=== PATIENT | male | born 1970 | race Caucasian/White ===

== ENCOUNTER 2021-03-22 19:30 | Emergency (ER) | payer MEDICAID, SELFPAY ==
[2021-03-22 19:40] VITALS: BP 127/77; PULSE 85; RESP 20; TEMP 36.8; O2SAT 97
--- NOTE | 2021-03-22 19:44 | ED.EYEPROB ---
HPI - Eye Problem General Chief complaint: Eye Problems Stated complaint: Eye Problem Source: patient and RN notes reviewed Mode of arrival: ambulatory Limitations: no limitations History of Present Illness chief complaint: eye pain Related Data Allergies Allergy/AdvReac Type Severity Reaction Status Date / Time No Known Allergies Allergy Unknown Unverified 10/02/13 11:04 Review of Systems Review of Systems: CONSTITUTIONAL: Denies body aches, fever, chills, or sweats. EYES: Denies visual changes,+ redness, or discharge. ENT: Denies rhinorrhea, congestion, sore throat, or otalgia. CARDIOVASCULAR: Denies chest pain, palpitations, or edema. RESPIRATORY: Denies cough or dyspnea. GASTROINTESTINAL: Denies abdominal pain, nausea, vomiting, or diarrhea. GENITOURINARY: Denies dysuria or hematuria. SKIN: Denies rash, itching, or wounds. MUSCULOSKELETAL: Denies back pain, joint pain, or myalgia. NEUROLOGIC: Denies headache, numbness, tingling, or weakness. PSYCH: Denies depression or anxiety. All systems reviewed & are unremarkable except as noted in HPI and below Exam Narrative: GENERAL: Well-appearing, well-nourished, and in no acute distress. HEAD: Normocephalic, atraumatic. EYES: EOMI. Right eye erythemic with moderate tearing noted. Corneal abrasion noted at 3pm. ENT: Mucous membranes pink and moist. Nares clear. No rhinorrhea. TMs normal bilaterally. Throat normal. Uvula midline. NECK: Normal AROM. Supple. No lymphadenopathy. CHEST: No respiratory distress. Clear to auscultation. HEART: Regular rate and rhythm. No murmur appreciated. Normal peripheral pulses. ABDOMEN: Soft, nontender, nondistended, normal active bowel sounds. MUSCULOSKELETAL: No bony tenderness. EXTREMITIES: Normal range of motion. No edema. SKIN: Warm, dry, no rash. Capillary refill normal. Normal skin turgor. NEURO: No focal deficits. Alert and oriented x3. Gait steady. PSYCH: Normal affect. No signs of depression or anxiety. Course Vital Signs Vital signs: Vital Signs Temperature 36.8 C 03/22/21 19:40 Pulse Rate 85 03/22/21 19:40 Respiratory Rate 20 03/22/21 19:40 Blood Pressure 127/77 03/22/21 19:40 Pulse Oximetry 97 03/22/21 19:40 Temperature 36.8 C 03/22/21 19:40 Pulse Rate 85 03/22/21 19:40 Respiratory Rate 20 03/22/21 19:40 Blood Pressure 127/77 03/22/21 19:40 Pulse Oximetry 97 03/22/21 19:40 Procedures Other Procedure Procedure 1: Other Procedure: right eye was anesthetized with 1 drop of tetracaine and anesthesia was achieved. The eye was flushed with eye wash. Lid was inverted and examined. Moistened Qtip was used to sweep underneath the upper eyelid with no foreign bodies resulting. Cornea was dyed with fluorescein and one abrasions noted at 3pm/. Pt tolerated procedure well. Critical Care Time Critical Care Time Critical Care Time: No Discharge Plan Discharge Clinical Impression: Corneal abrasion Patient Disposition: Home, Self-Care Condition: Stable Instructions: Antibiotic Form, Corneal Abrasion (ED) Additional Instructions: Do not rub your eye. Take antibiotic eye drops as prescribed. Follow-up immediately in the ER with an county home demonstration agent for any severe eye pain, vision change, or any severe symptoms. ibuprofen or Motrin 800 mg three times daily for pain. Patient Language: Slovenian Prescriptions: New ciprofloxacin HCl 0.3 % drops 2 drp RIGHT EYE QID Qty: 5 RF: 0 Follow-up/Referrals: PHYSICIAN,STATISTICAL METHODS TEACHER [Primary Care Provider] - Time of Disposition: 20:02
== END 2021-03-22 20:07 | disposition home or self-care (01) ==
PROVIDERS: Emergency Provider Nurse Practitioner Family
DX: S05.01XA Injury of conjunctiva and corneal abrasion without foreign body, right eye, initial encounter (principal); X58.XXXA Exposure to other specified factors, initial encounter; Y93.H2 Activity, gardening and landscaping
CPT/HCPCS: 99203; A9270; G0463

== ENCOUNTER 2021-08-08 10:57 | Outpatient (CLI) | payer BC, SELFPAY ==
--- NOTE | ~2021-08-08 | XR_ITS ---
EXAMINATION: XR shoulder LT min 2V INDICATION: Chronic left shoulder pain TECHNIQUE: Four views of the left shoulder are submitted. COMPARISON: None FINDINGS: Normal alignment. No shoulder fracture. A healed left fifth rib fracture is noted. 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 Soft tissues are unremarkable. IMPRESSION: 1. No acute osseous abnormality. Reviewed, dictated and finalized at location B.
[2021-08-08 18:58] LABS: Hematocrit 48.1 % (42.0-52.0); Hemoglobin 15.6 g/dL (14.0-18.0); Mean Corpuscular HGB Conc 32.4 g/dl (32-36); Mean Corpuscular Hemoglobin 30.4 pg (26-34); Mean Corpuscular Volume 93.8 fl (80-100); Mean Platelet Volume 8.9 fl (7.4-10.4); Platelet Count Result 306 k/mm3 (150-375); Red Blood Count 5.13 M/mm3 (4.6-6.20); Red Cell Distribution Width 13.5 % (11.5-14.5); White Blood Count 6.8 K/mm3 (4.5-10.0)
[2021-08-08 19:10] LABS: Alanine Aminotransferase 33 U/L (4-50); Albumin Level 4.1 g/dL (3.5-5.1); Alkaline Phosphatase 78 U/L (38-126); Anion Gap 6 mmol/L (8-16); Aspartate Amino Transferase 30 U/L (17-59); Bilirubin,Total 0.1 mg/dL (0.2-1.3); Blood Urea Nitrogen 19 mg/dL (9-20); Calcium 9.2 mg/dL (8.4-10.2); Carbon Dioxide 26 mmol/L (22-30); Chloride 107 mmol/L (98-107); Cholesterol 172 mg/dL (0-200); Estimated Glomerular Filt Rate > 60; Glucose 99 mg/dL (65-110); HDL Direct 46 mg/dL; Lipase 88 U/L (23-300); Potassium 4.3 mmol/L (3.4-5.0); Sodium 139 mmol/L (137-145); Triglycerides 104 mg/dL (<150)
[2021-08-08 19:11] LABS: Hemoglobin A1C 5.2 % (<5.7)
[2021-08-08 19:22] LABS: LDL Cholesterol Direct 105 mg/dL
[2021-08-08 19:44] LABS: Prostate Specific Antigen 1.6 ng/mL (< OR = 4.0)
== END 2021-08-08 10:58 | disposition home or self-care (01) ==
PROVIDERS: PCP Family Medicine; Visit Provider Family Medicine
DX: K21.9 Gastro-esophageal reflux disease without esophagitis (principal); Z87.19 Personal history of other diseases of the digestive system; M25.512 Pain in left shoulder; G89.29 Other chronic pain
CPT/HCPCS: 36415; 73030; 80053; 80061; 83036; 83690; 84153; 85027; G0103

== ENCOUNTER 2021-08-28 10:06 | Outpatient (CLI) | payer BC, SELFPAY ==
--- NOTE | ~2021-08-28 | CT_ITS ---
EXAMINATION: CT lung screening EXAM DATE: 08/28/2021 10:41 INDICATION: Z87.891 - Personal history of nicotine dependence. TECHNIQUE: Spiral low dose CT of the chest without contrast. Axial, coronal and sagittal images were reviewed. The dose-length product (DLP) for this examination was 176.37 mGy-cm. The exposure was t ailored according to patient size (auto mA exposure control), and iterative reconstruction (ASIR) was used as additional dose reduction technique. There is no prior study for comparison. FINDINGS: There are 2 pleural-based right middle lobe nodules along the minor fissure measuring abou t 3 mm in size most likely postinfectious. There is lingular calcified granuloma. There is 3 mm left apical nodule suspected to have punctate calcification consistent with granuloma. There is mild emphy sema and hyperinflation. Tracheobronchial tree is patent. There is no mediastinal, hilar or axilla ry lymphadenopathy. There are no pleural or pericardial effusions. There is no pneumothorax. He art normal in size. No evidence of coronary arterial calcification. There is small sliding gastroes ophageal hiatal hernia. There is thoracic spondylosis without osteoblastic or osteolytic lesions lily ntified. IMPRESSION: Lung-RADS category 2, benign appearance or behavior (<1% chance of malignancy); recommend continued LDCT screening in 1 year. Reviewed, dictated and finalized at location B.
== END 2021-08-28 10:07 | disposition home or self-care (01) ==
LOC: ANHIMG 10:09
PROVIDERS: PCP Family Medicine; Visit Provider Family Medicine
DX: Z87.891 Personal history of nicotine dependence (principal)
CPT/HCPCS: 71271

== ENCOUNTER 2024-04-21 16:47 | Emergency (ER) | payer BC, SELFPAY ==
[2024-04-21 16:56] VITALS: BP 119/86; PULSE 87; RESP 20; TEMP 36.9; O2SAT 97
--- NOTE | 2024-04-21 17:37 | ED_ITS ---
HPI - Dental/Oral General Chief complaint: Dental/Oral Stated complaint: Chest Pain/Mouth Sore/Toothache Time Seen by Provider: 04/21/24 17:37 Source: patient Mode of arrival: ambulatory History of Present Illness HPI Narrative: 53 y/o male presented for c/o bilateral lower posterior dental pain. Says the right is worse than the left. Pt reports bad and broken teeth, history of dental pain. Pain has been worsening for weeks. Pt took steroid dose pack someone gave him without relief. Also taking tylenol and ibuprofen. MD Complaint: tooth pain Related Data Allergies Allergy/AdvReac Type Severity Reaction Status Date / Time No Known Allergies Allergy Unknown Unverified 04/21/24 17:00 Review of Systems Review of Systems: CONSTITUTIONAL: Denies body aches, fever, chills ENT: Denies rhinorrhea, congestion, sore throat, or otalgia. Reports dental pain CARDIOVASCULAR: Denies chest pain, palpitations RESPIRATORY: Denies cough or dyspnea. SKIN: Denies rash, itching, or wounds. MUSCULOSKELETAL: Denies myalgia. NEUROLOGIC: Denies headache, numbness, tingling, or weakness. [facility] Past Medical History Medical History Acute biliary pancreatitis Family History Family History Father Cerebrovascular accident Mother Bone cancer Comments At time of signature, I have reviewed and agree with nursing past medical, surgical, social and family history unless otherwise noted. Please see nursing chart for further information. There is no relevant family history pertinent to the presenting complaint Exam Narrative: GENERAL: Appears in pain; no acute distress. HEAD: Normocephalic, atraumatic. EYES: EOMI. No redness or drainage. Conjunctivae normal. ENT: Dental pain location of #31 and #19, broken teeth. Swelling and erythema noted around #31, tender. Mild swelling to #19. Mucous membranes pink and moist. TMs normal bilaterally. Throat normal. no dysphagia, odynophagia, dysphonia, or dyspnea. No uvular deviation or soft palate edema. NECK: Normal AROM. No lymphadenopathy. no induration below mandible, no neck pain. CHEST: No respiratory distress. Clear to auscultation. HEART: Regular rate and rhythm. No murmur appreciated. SKIN: Warm, dry, Normal skin turgor. NEURO: No focal deficits. Alert and oriented x3. Gait steady. Course Course Emergency Course: Patient is aware of diagnosis, understands and agrees to treatment plan. Anticipatory guidance given. Patient agrees to follow-up as directed and is aware of reasons to seek care at the emergency department. Portions of this record may have been created with voice recognition software Level of Care: Express Care Visit Vital Signs Vital signs: Vital Signs Temperature 98.5 F 04/21/24 16:56 Pulse Rate 87 04/21/24 16:56 Respiratory Rate 20 04/21/24 16:56 Blood Pressure 119/86 04/21/24 16:56 Pulse Oximetry 97 04/21/24 16:56 Oxygen Delivery Room Air 04/21/24 16:56 Temperature 98.5 F 04/21/24 16:56 Pulse Rate 87 04/21/24 16:56 Respiratory Rate 20 04/21/24 16:56 Blood Pressure 119/86 04/21/24 16:56 Pulse Oximetry 97 04/21/24 16:56 Oxygen Delivery Room Air 04/21/24 16:56 MDM - Dental/Oral MDM Narrative Medical decision making narrative: Patients pain and complaint coupled with physical findings are consistent with dentalgia. There are no focal signs of space occupying lesions that are compromising to the airway; Patient is non-toxic appearing. The floor of the mouth is soft with no signs of Ghanshyam's Angina; Patient is without trismus or drooling and able to swallow secretions. Patient is felt appropriate for discharge home with dental follow up. Differential Diagnosis Differential diagnosis: Likely gingival abscess, dental caries, toothache, dental abscess, fracture of tooth and aphthous ulcer Discharge Plan Discharge Clinical Impression: Toothache Patient Disposition: Home, Self-Care Condition: Stable Instructions: Antibiotic Form, Dental Abscess (ED) Additional Instructions: Take antibiotic as directed May apply heat or ice to the face Gentle brushing and flossing. Rinse mouth with warm salt water at least 2 times a day. Alternate Tylenol and ibuprofen as needed for pain Follow-up with the dentist as soon as possible--see the list provided go to the ER for worsening symptoms or concerns Prescriptions: New ibuprofen 800 mg tablet 800 mg PO TID PRN (Reason: pain) Qty: 15 0RF lidocaine HCl [Lidocaine Viscous] 2 % solution 1 applic mucous membrane TID PRN (Reason: pain) Qty: 100 0RF Rx Instructions: apply with cotton swab to site of pain amoxicillin-pot clavulanate 875-125 mg tablet 1 tablet PO Q12H 7 Days Qty: 14 0RF Follow-up/Referrals: PHYSICIAN,RAILWAY SWITCH OPERATOR [Primary Care Provider] - Stand Alone Forms: Work/School Release IP Time of Disposition: 17:45
== END 2024-04-21 17:45 | disposition home or self-care (01) ==
PROVIDERS: Emergency Provider Nurse Practitioner Family
DX: K08.89 Other specified disorders of teeth and supporting structures (principal)
CPT/HCPCS: 99213; G0463

== ENCOUNTER 2024-11-25 11:58 | Emergency (ER) | payer BC, SELFPAY ==
--- OUTSIDE RECORDS SUMMARY | 2024-11-25 12:01 | XMS_ITS | Data Portability ---
Author Organization [facility] KAITLINAna Cadet Address [address] [place] [address] Care Team Providers Care Psych Sales Specialist Name Role Phone JACINTA HERRERA Primary Care Provider Unavailabl e Assessment No assessment recorded. Plan of Treatment Reminders Order Date Submit Date Provider Last Modified By Organization Details Last Modified Time Details Appointments None recorded. Lab CT + NG DNA, PCR, unspecifie d specimen 2015 [facility]16 [facility], [address] [place] [address], [address], [place], [address], 6 09:16:25 hsv (1+2) igg, serum 2015 016 [facility], [address] [place] [address], [address], [place], [address], 6 09:16:24 hepatitis panel (A+B+C), acute, serum 2015 016 [facility], [address] [place] [address], [address], [place], [address], 6 09:16:24 unlisted lab - HIV screen 4TH generation wrfx 2015 016 [facility], [address] [place] [address], [address], [place], [address], 6 14:28:51 RPR (rapid plasma reagin), serum 2015 016 DEANNA HUTCHINSON, [address], [address], [place], [address], 6 09:16:26 CBC 2015 016 DEANNA HUTCHINSON, [address], [address], [place], [address], 6 09:16:22 CMP, serum or plasma 2015 016 DEANNA HUTCHINSON, [address], [address], [place], [address], 6 09:16:23 lipid panel, serum 2015 016 DEANNA HUTCHINSON, [address], [address], [place], [address], 6 09:16:23 PSA, serum or plasma 2015 016 DEANNA HUTCHINSON, [address], [address], [place], [address], 6 09:16:25 Referral None recorded. Procedures None recorded. Surgeries None recorded. Imaging None recorded. Medication Orders omeprazole 20 mg capsule,de layed release 2015 016 [id number], [address], [place], [id number], 6 14:28:57 fluticason e propionate 50 mcg/actuat ion nasal spray,susp ension 2015 016 [facility] #[id number], [address], [place], [id number], 6 14:28:58 Sudafed 12 Hour 120 mg tablet,ext ended release 2015 016 [facility] #[id number], [address], [place], [place], [id number], 18:25:17 Patient TargetsNo targets recorded. Patient Instructions Encounter Date Encounter Id Patient Instructions Last Modified By Organization Details Last Modified Time 05/09/2016 [id number] gastroesophageal reflux disease (GERD): care instructions [email or web address] Not available 05/09/2016 14:28:51 Reason for Referral None Reported. Results Created Date Observation Date Name Description Value Unit Range Abnormal Flag Note LastModifiedBy Organization Detail LastModifiedTime 05/09/20 16 05/10/2016 CBC WBC 6.8 x10e3 /uL 3.4-10 .8 Not Available [facility] ([facility]) [address] [facility], [place], [address], 05/11/2016 09:16:22 05/09/20 16 05/10/2016 CBC RBC 4.68 x10e6 /uL 4.14-5 .80 Not Available [facility] ([facility]) [address] [place], [address], 05/11/2016 09:16:22 05/09/20 16 05/10/2016 CBC hemoglobin 14.6 g/dL 12.6-1 7.7 Not Available [facility] ([facility]) [address] [place], [address], 05/11/2016 09:16:22 05/09/20 16 05/10/2016 CBC hematocrit 42.7 % 37.5-5 1.0 Not Available [facility] ([facility]) [address] [place], [address], 05/11/2016 09:16:22 05/09/20 16 05/10/2016 CBC MCV 91 fL 79-97 Not Available [facility] ([facility]) [address] [facility], [place], [address], 05/11/2016 09:16:22 05/09/20 16 05/10/2016 CBC MCH 31.2 pg 26.6-3 3.0 Not Available [facility] ([facility]) [address] [facility] [place], [address], 05/11/2016 09:16:22 05/09/20 16 05/10/2016 CBC MCHC 34.2 g/dL 31.5-3 5.7 Not Available [facility] ([facility]) [address] [place], [address], 05/11/2016 09:16:22 05/09/20 16 05/10/2016 CBC RDW 13.9 % 12.3-1 5.4 Not Available [facility] ([facility]) [address] [facility] [place], [address], 05/11/2016 09:16:22 05/09/20 16 05/10/2016 CBC platelets 368 x10e3 /uL 150-37 9 Not Available [facility] ([facility]) [address] [place], [address], 05/11/2016 09:16:22 05/09/20 16 05/10/2016 CBC neutrophils 46 % Not Avai lable [facility] ([facility]) [address] [place], [address], 05/11/2016 09:16:22 05/09/20 16 05/10/2016 CBC lymphs 40 % Not Available [facility] ([facility]) [address] [place], [address], 05/11/2016 09:16:22 05/09/20 16 05/10/2016 CBC monocytes 10 % Not Availa ble [facility] ([facility]) [address] [place], [address], 05/11/2016 09:16:22 05/09/20 16 05/10/2016 CBC eos 4 % Not Available [facility] ([facility]) [address] [place], [address], 05/11/2016 09:16:22 05/09/20 16 05/10/2016 CBC basos 0 % Not Available [facility] ([facility]) [address] [facility] [place], [address], 05/11/2016 09:16:22 05/09/20 16 05/10/2016 CBC immature cells DEBT MANAGEMENT COUNSELOR Not Available [facility] ([facility]) [address] [place], [address], 05/11/2016 09:16:22 05/09/20 16 05/10/2016 CBC neutrophils (absolute) 3.1 x10e3 /uL 1.4-7. 0 Not Available [facility] ([facility]) [address] [place], [address], 05/11/2016 09:16:22 05/09/20 16 05/10/2016 CBC lymphs (absolute) 2.7 x10e3 /uL 0.7-3. 1 Not Available [facility] ([facility]) [address] [facility] [place], [address], 05/11/2016 09:16:22 05/09/20 16 05/10/2016 CBC monocytes(ab solute) 0.7 x10e3 /uL 0.1-0. 9 Not Available [facility] ([facility]) [address] [place], [address], 05/11/2016 09:16:22 05/09/20 16 05/10/2016 CBC eos (absolute) 0.3 x10e3 /uL 0.0-0. 4 Not Available [facility] ([facility]) [address] [place], [address], 05/11/2016 09:16:22 05/09/20 16 05/10/2016 CBC baso (absolute) 0.0 x10e3 /uL 0.0-0. 2 Not Available [facility] ([facility]) [address] [place], [address], 05/11/2016 09:16:22 05/09/20 16 05/10/2016 CBC immature granulocytes 0 % Not Available [facility] ([facility]) [address] [place], [address], 05/11/2016 09:16:22 05/09/20 16 05/10/2016 CBC immature grans (abs) 0.0 x10e3 /uL 0.0-0. 1 Not Available [facility] ([facility]) [address] [place], [address], 05/11/2016 09:16:22 05/09/20 16 05/10/2016 CBC NRBC DEBT MANAGEMENT COUNSELOR Not Available [facility] ([facility]) [address] [place], [address], 05/11/2016 09:16:22 05/09/20 16 05/10/2016 CBC hematology comments: DEBT MANAGEMENT COUNSELOR Not Available [facility] ([facility]) [address] [place], [address], 05/11/2016 09:16:22 05/09/20 16 05/10/2016 CMP, serum or plasm a glucose, serum 78 mg/dL 65-99 Not Available [facility] ([facility]) [address] [place], [address], 05/11/2016 09:16:23 05/09/20 16 05/10/2016 CMP, serum or plasm a BUN 15 mg/dL 6-24 Not Available [facility] ([facility]) [address] [place], [address], 05/11/2016 09:16:23 05/09/20 16 05/10/2016 CMP, serum or plasm a creatinine, serum 0.88 mg/dL 0.76-1 .27 Not Available [facility] ([facility]) [address] [place], [address], 05/11/2016 09:16:23 05/09/20 16 05/10/2016 CMP, serum or plasm a eGFR if nonafricn AM 104 mL/mi n/1.7 3 >59 Not Available [facility] ([facility]) [address] [facility], [place], [address], 05/11/2016 09:16:23 05/09/20 16 05/10/2016 CMP, serum or plasm a eGFR if africn AM 121 mL/mi n/1.7 3 >59 Not Available [facility] ([facility]) [address] [facility], [place], [address], 05/11/2016 09:16:23 05/09/20 16 05/10/2016 CMP, serum or plasm a BUN/creatini ne ratio 17 9-20 Not Available [facility] ([facility]) [address] [place] [address] [place], [address], 05/11/2016 09:16:23 05/09/20 16 05/10/2016 CMP, serum or plasm a sodium, serum 138 mmol/ L 134-14 4 PLE ASE NOTE REFER ENCE INTER CRUZ HORTA E Not Available [facility] ([facility]) [address] [place] [address], [address], 05/11/2016 09:16:23 05/09/20 16 05/10/2016 CMP, serum or plasm a potassium, serum 4.3 mmol/ L 3.5-5. 2 Not Available [facility] ([facility]) [address] [place], [address], 05/11/2016 09:16:23 05/09/20 16 05/10/2016 CMP, serum or plasm a chloride, serum 100 mmol/ L 96-106 PLE ASE NOTE REFER ENCE INTER CRUZ HORTA E Not Available [facility] ([facility]) [address] [place] [address] [place], [address], 05/11/2016 09:16:23 05/09/20 16 05/10/2016 CMP, serum or plasm a carbon dioxide, total 22 mmol/ L 18-29 Not Available [facility] ([facility]) [address] [facility] [place], [address], 05/11/2016 09:16:23 05/09/20 16 05/10/2016 CMP, serum or plasm a calcium, serum 9.3 mg/dL 8.7-10 .2 Not Available [facility] ([facility]) [address] [place], [address], 05/11/2016 09:16:23 05/09/20 16 05/10/2016 CMP, serum or plasm a protein, total, serum 6.3 g/dL 6.0-8. 5 Not Available [facility] ([facility]) [address] [place], [address], 05/11/2016 09:16:23 05/09/20 16 05/10/2016 CMP, serum or plasm a albumin, serum 4.3 g/dL 3.5-5. 5 Not Available [facility] ([facility]) [address] [place], [address], 05/11/2016 09:16:23 05/09/20 16 05/10/2016 CMP, serum or plasm a globulin, total 2.0 g/dL 1.5-4. 5 Not Available [facility] ([facility]) [address] [place], [address], 05/11/2016 09:16:23 05/09/20 16 05/10/2016 CMP, serum or plasm a A/G ratio 2.2 1.1-2. 5 Not Available [facility] ([facility]) [address] [place], [address], 05/11/2016 09:16:23 05/09/20 16 05/10/2016 CMP, serum or plasm a bilirubin, total 0.3 mg/dL 0.0-1. 2 Not Available [facility] ([facility]) [address] [place], [address], 05/11/2016 09:16:23 05/09/20 16 05/10/2016 CMP, serum or plasm a alkaline phosphatase, S 66 IU/L 39-117 Not Available [facility] ([facility]) [address] [place], [address], 05/11/2016 09:16:23 05/09/20 16 05/10/2016 CMP, serum or plasm a AST (SGOT) 24 IU/L 0-40 Not Available [facility] ([facility]) [address] [place], [address], 05/11/2016 09:16:23 05/09/20 16 05/10/2016 CMP, serum or plasm a ALT (SGPT) 33 IU/L 0-44 Not Available [facility] ([facility]) [address] [facility] [place], [address], 05/11/2016 09:16:23 05/09/20 16 05/10/2016 lipid panel , serum cholesterol, total 142 mg/dL 100-19 9 Not Available [facility] ([facility]) [address] [facility] [place], [address], 05/11/2016 09:16:23 05/09/20 16 05/10/2016 lipid panel , serum triglyceride s 67 mg/dL 0-149 Not Available [facility] ([facility]) [address] [facility] [place], [address], 05/11/2016 09:16:23 05/09/20 16 05/10/2016 lipid panel , serum HDL cholesterol 48 mg/dL >39 Not Available [facility] ([facility]) [address] [facility] [place], [address], 05/11/2016 09:16:23 05/09/20 16 05/10/2016 lipid panel , serum VLDL cholesterol dominique 13 mg/dL 5-40 Not Available [facility] ([facility]) [address] [facility], [place], [address], 05/11/2016 09:16:23 05/09/20 16 05/10/2016 lipid panel , serum LDL cholesterol calc 81 mg/dL 0-99 Not Available [facility] ([facility]) [address] [facility], [place], [address], 05/11/2016 09:16:23 05/09/20 16 05/10/2016 lipid panel , serum comment: DEBT MANAGEMENT COUNSELOR Not Available [facility] ([facility]) [address] [facility], [place], [address], 05/11/2016 09:16:23 05/09/20 16 05/10/2016 hepat itis panel (A+B+ C), acute , serum hep A Ab, IgM NEGATI VE negati ve Not Available [facility] ([facility]) [address] [facility], [place], [address], 05/11/2016 09:16:24 05/09/20 16 05/10/2016 hepat itis panel (A+B+ C), acute , serum HBsAg screen NEGATI VE negati ve Not Available [facility] ([facility]) [address] [facility], [place], [address], 05/11/2016 09:16:24 05/09/20 16 05/10/2016 hepat itis panel (A+B+ C), acute , serum hep B core Ab, IgM NEGATI VE negati ve Not Available [facility] ([facility]) [address] [facility], [place], [address], 05/11/2016 09:16:24 05/09/20 16 05/10/2016 hepat itis panel (A+B+ C), acute , serum hep C virus Ab <0.1 S/co_ ratio 0.0-0. 9 NEGAT SWATI: < 0.8 INDET ERMIN ATE: 0.8 - 0.9 POSIT SWATI: > 0.9 THE CDC RECOM MENDS THAT A POSIT SWATI HCV ANTIB EILEEN RESUL T BE FOLLO WED UP WITH A HCV NUCLE IC ACID AMPLI FICAT ION TEST (5507 [id number]). Not Available [facility] ([facility]) [address] [facility], [place], [address], 05/11/2016 09:16:24 05/09/20 16 05/10/2016 hsv (1+2) igg, serum hsv 1 IgG, type spec 20.40 index 0.00-0 .90 above high normal NEGAT SWATI <0.91 EQUIV OCAL 0.91 - 1.09 POSIT SWATI >1.09 NOTE: NEGAT SWATI INDIC ATES NO ANTIB ODIES DETEC GEORGE TO HSV-1 . EQUIV OCAL MAY SUGGE ST EARLY INFEC TION. IF CLINI FLOYD APPRO PRIAT E, RETES T AT LATER DATE. POSIT SWATI INDIC ATES ANTIB ODIES DETEC GEORGE TO HSV-1 . Not Available [facility] ([facility]) [address] [facility], [place], [address], 05/11/2016 09:16:24 05/09/20 16 05/10/2016 hsv (1+2) igg, serum hsv 2 IgG, type spec <0.91 index 0.00-0 .90 NEGAT SWATI <0.91 EQUIV OCAL 0.91 - 1.09 POSIT SWATI >1.09 NOTE: NEGAT SWATI INDIC ATES NO ANTIB ODIES DETEC GEORGE TO HSV-2 . EQUIV OCAL MAY SUGGE ST EARLY INFEC TION. IF CLINI FLOYD APPRO PRIAT E, RETES T AT LATER DATE. POSIT SWATI INDIC ATES ANTIB ODIES DETEC GEORGE TO HSV-2 . Not Available [facility] ([facility]) [address] [facility], [place], [address], 05/11/2016 09:16:24 05/09/20 16 05/11/2016 CT + NG DNA, PCR, unspe cifie d speci men chlamydia trachomatis, KENNETH NEGATI VE negati ve Not Available [facility] ([facility]) [address] [facility], [place], [address], 05/11/2016 09:16:25 05/09/20 16 05/11/2016 CT + NG DNA, PCR, unspe cifie d speci men neisseria gonorrhoeae, KENNETH NEGATI VE negati ve Not Available [facility] ([facility]) [address] [facility], [place], [address], 05/11/2016 09:16:25 05/09/20 16 05/10/2016 PSA, serum or plasm a prostate specific Ag, serum 1.7 NG/mL 0.0-4. 0 SEYMOUR ECLIA METHO DOLOG Y. ACCOR DING TO THE [facility] N, SERUM PSA SHOUL D DECRE ASE AND REMAI N AT UNDET ECTAB LE LEVEL S AFTER RADIC AL PROST ATECT ANNIE. THE AUA DEFIN ES BIOCH EMICA L RECUR RENCE AN INITI AL PSA VALUE 0.2 NG/ML OR GREAT ER FOLLO WED BY A SUBSE QUENT CONFI RMATO RY PSA VALUE 0.2 NG/ML OR GREAT ER. VALUE S OBTAI AMY WITH DIFFE RENT ASSAY METHO DS OR KITS CANNO T BE USED INTER HORTA EABLY . RESUL TS CANNO T BE INTER PRETE D ABSOL KATE EVIDE NCE OF THE PRESE NCE OR ABSEN CE OF DAI MITCHELL SE. Not Available [facility] ([facility]) [address] [facility], [place], [address], 05/11/2016 09:16:25 05/09/20 16 05/10/2016 HIV 1+2 AB + HIV 1 p24 Ag, quali tativ e immun oassa y, serum HIV screen 4TH generation wrfx NON REACTI VE non reacti ve Not Available [facility] ([facility]) [address] [facility], [place], [address], 05/11/2016 09:16:26 05/09/20 16 05/10/2016 RPR (rapi d plasm a reagi n), serum RPR NON REACTI VE non reacti ve Not Available [facility] ([facility]) [address] [place], [address], 05/11/2016 09:16:26 05/30/19 17 05/28/2016 XR, chest , 2 view No observ ation record edJacob huddleston Not Available 2016 12:25:54 Result Notes None recorded. Problems Name Problem SNOMED Code Status Onset Date Resolution Date Notes Provider Name and Address Organization Details Recorded Time Gastroesophage al reflux disease without esophagitis 634343438 Active 2015 Jacinta Herrera PA-C Attn: [address] [place], [address], [facility] 6 14:04:41 Anxiety 37148798 Active 2015 Jacinta Herrera PA-C Attn: Andree [address]kins,[address] [place], [address], [facility] 6 14:04:48 Depressive disorder 45850599 Active 2015 Jacinta Herrera PA-C Attn: [address]ree [address] [place], [address], [facility] 6 14:04:55 Problem Notes None recorded. Medical Equipment None Reported. Allergies No known drug allergies Medications Name Sig Start Date Stop Date Status Note LastModified by Organization Details LastModified Time omeprazole 20 mg capsule,manish yed release Take 1 capsule every day by oral route. 2015 active Not Available Not Available Not Avai lable fluticasone propionate 50 mcg/actuatio n nasal spray,suspen yasmani [place] 1 spray every day by intranasal route. 2015 active Not Available Not Available Not Avai lable Sudafed 12 Hour 120 mg tablet,exten ded release Take 1 tablet every 12 hours by oral route as needed for 10 days. 2015 active Not Available Not Available Not Avai lable Vitals Date Recorded Body height Body weight Body mass index (BMI) Heart rate Respiratory rate Body temperature Oxygen saturation Oxygen saturation in Arterial blood by Pulse oximetry Systolic And Diastolic Provider Name and Address Organization Details Last Updated DateTime 6 190.5 cm 15974.8 g 26.9 kg/m2 84 /min 12 /min 98.4 [degF] 96 % 96 % 128/82 mm[Hg] Siri [place] - [facility] 6 13:57:13 Social History Question Answer Notes LastModified by Organizat ion Details LastModified Time Tobacco Smoking Status Current Every Day Smoker Siri grubbs, [place] - [facility] 05/09/2016 13:59:55 What Is Your Level Of Caffeine Consumption? Heavy Coffee, Tea Information not available 05/09/2016 How Much Tobacco Do You Chew? None Information not available 05/09/2016 What Type Of Diet Are You Following? REGULAR Information not available 05/09/2016 Which Illicit Or Recreational Drugs Have You Used? History Of Cocaine Information not available 05/09/2016 Are There Any Guns Present In Your Home? No Information not available 05/09/2016 Hard Of Hearing Or Deaf In One Or Both Ears? No Information not available 05/09/2016 Legally Blind In One Or Both Eyes? No Information not available 05/09/2016 Marital Status Informatio n not available 05/09/2016 Seat Belts Used Routinely Yes Information not available 05/09/2016 Smoke Alarm In Home Yes Information not available 05/09/2016 At What Age Did You Start Smoking Tobacco? 15 Information not available 05/09/2016 How Much Tobacco Do You Smoke? 1 PPD Information not available 05/09/2016 General Stress Level Low Information not available 05/09/2016 Do You Use Sunscreen Routinely? No Information not available 05/09/2016 How Many Years Have You Smoked Tobacco? 25 Information not available 05/09/2016 Sex: Unknown Functional Status Question Answer Note LastModified by Organizat ion Details LastModified Time What is your level of alcohol consumption? Moderate 6pk/week Information not available 05/09/2016 What is your exercise level? None Information not available 05/09/2016 Mental Status None recorded. Family History Relationship Description Onset Age of this Age Resolved Age Notes LastModified by Organization Details LastModified Time Mother Migraine Not available 05/09/2016 13:59:19 Father Cerebrovascu lar accident Not available 13:59:31 Brother Harmful pattern of use of alcohol Not available 2015 13:59:39 Medical History Condition Response Anxiety Disorder Y Muscle, Joint, or Bone Problems Y Acid Reflux (GERD) Y Depression Y Immunizations Vaccine Type Date Status Note Provider Israel de la rosa and Address Organization Details Recorded Time Tdap 05/09/2016 completed Not Available [facility] 06/07/2019 02:33:00 Past Encounters Encounter ID Performer Location Encounter Start Date Encounter Closed Date Diagnosis/Indication Diagnosis SNOMED-CT Code Diagnosis ICD10 Code Diagnosis Note [id number] NAHUN Kwan (Adult Med) [address] [place] [address] 05/09/2016 13:41:45 05/09/2016 15:30:59 Depressive disorder 71676653 F33.0 stable w/o medication s. Pt counseled to call if he feels he needs to start meds in future Anxiety 03715409 F41.9 stable w/o meds Gastroesop hageal reflux disease without esophagitis 144700626 K21.9 Pt counseled on diet, reasons for taking medication ; take for 2 weeks, if improving continue for a total of 4 weeks then use only as needed. Strongly encouraged to quit smoking Risk of ex posure to communicable disease 151556794 Z20.9 Pt counseled to use condoms. Acute uppe r respiratory infection 15848322 J06.9 likely viral. No abx at this time. Encouraged to quit smoking. Says he can't take anti-hista mines Adult [facility] th examination 690838151 Z00.00 Has been many years since he had a full physical exam. Administra tion of diphtheria, pertussis, and tetanus vaccine 041835095 Z23 Body mass index 25-29 - overweight 887125467 Z68.26 Vaccine de clined by patient 1180630488 02 Z28.20 refused influenza vaccine today. Health Concerns Section Related Observation LastModified by Organization Detai ls LastModified Time None Recorded Concern Status LastModified by Organization Details LastModified Time None Recorded Advance Directives Directive None Recorded Payers Insurance Date Sequence Insurance Name Policy Number Policy Benitez Covered Member ID Benitez Member ID Guarantor Name 11/03/2016 1 [facility] (MEDICAID HMO) John Palacios [id number] John Palacios Notes Date Note Type Note Provider Name and Address Organization Details Recorded Time 05/09/2016 text/html Cough x 2-3 week s, worse at night, barking deep cough and sometimes coughs hard he feels like throwing up. Waxes & wanes. Assoc [facility], sinus congestion one night then runny nose. Tried sudafed & Nyquil. No fevers/chills, some wheezing. Others in house have been sick. Daily acid reflux, not taking any meds for it, was Rx something but never took it. 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 Anxiety/depression : stopped taking meds, doesn't like taking them. Feels better at this time, says his stress level is better and he feels he is in a good place mentally. Prior GF says she may have STD, possibly 60 days ago, he's not sure if he believes her because she tries to lie so he doesn't sleep w/ other women. Current GF wants him tested, she has h/o cervical cancer and doesn't want to risk anything. They don't use condoms. He denies any penile d/c, no dysuria, swelling to genitalia or skin ulcerations or rash. He was tested about 5yrs ago and everything including hepatitis panel was negative. h/o cold sores, gets severe to lips, but hasn't had breakout in over a year, says his stress level is better. h/o cocaine use, not using anymore. Drinks less than a 6 pack most weeks.Smokes 1 ppd. Never had flu shot. Jacinta Herrera PA-C Attn: Accounting[address] [facility], [place], [address], [place] - [place] 05/09/2016 14:43:39
[2024-11-25 12:06] VITALS: BP 144/92; PULSE 94; RESP 16; TEMP 36.6; O2SAT 97
--- NOTE | 2024-11-25 12:42 | ED.DENTAL ---
HPI - Dental/Oral General Chief complaint: Dental/Oral Stated complaint: mouth infection Time Seen by Provider: 11/25/24 12:20 Source: patient and RN notes reviewed Mode of arrival: ambulatory Limitations: no limitations History of Present Illness HPI Narrative: 54-year-old male presents to the [facility] complaining of dental pain for approximately 5 days. Patient reports he recently had teeth pulled in his lip cavity to the right upper jaw. Patient reports worsening pain and swelling near is 2nd molar. Patient denies any locked jaw, difficulty swallowing, difficulty breathing, fevers, body aches, chills, swelling or pain under the tongue, any other symptoms. Patient called his dentist was told to come and take antibiotics. Patient has not made a follow-up appoint with dentist yet. Related Data Allergies Allergy/AdvReac Type Severity Reaction Status Date / Time No Known Allergies Allergy Unknown Unverified 11/25/24 12:10 Review of Systems Review of Systems: CONSTITUTIONAL: Denies fever, chills, or sweats. EYES: Denies visual changes, redness, or discharge. ENT: Denies rhinorrhea, congestion, sore throat, or otalgia. DENTAL: Positive for dental pain. Negative for trismus, swelling or pain under the tongue. CARDIOVASCULAR: Denies chest pain, palpitations, or edema. RESPIRATORY: Denies cough or dyspnea. GASTROINTESTINAL: Denies abdominal pain, nausea, vomiting, or diarrhea. GENITOURINARY: Denies dysuria or hematuria. SKIN: Denies rash or itching. MUSCULOSKELETAL: Denies back pain, joint pain, or myalgia. NEUROLOGIC: Denies headache, numbness, or weakness. PSYCHIATRIC: Denies anxiety or depression. All other systems reviewed are negative, except as documented in HPI. PMFSH Past Medical History Medical History Acute biliary pancreatitis Family History Family History Father Cerebrovascular accident Mother Bone cancer Comments At the time of my signature, I reviewed and agree with the nursing past medical, surgical, social, and family history. There is no relevant family history pertinent to the patient complaint. Exam Narrative: GENERAL: This is a well-nourished, well-developed adult, in no apparent distress. They are non ill-appearing, nontoxic appearing. HEAD: normocephalic, atraumatic. EYES: Sclera clear/white. Conjunctiva normal. Vision is grossly intact. Extraocular movements intact EARS: External ears normal, Hearing grossly intact. NOSE: External nose normal THROAT: Mucous membranes moist, posterior pharynx clear, without erythema or swelling. Uvula midline. OROPHARYNX: Erythema swelling around the 1st had 2nd molar to the right upper gum. Gingivitis present. Missing teeth. Dental caries present to right upper mouth. No pain or swelling under the tongue. Tenderness to palpation your 1st and 2nd molar in the right upper gum. No obvious abscess formation, no area of fluctuance. No Exudate. No trismus NECK: Neck supple, non-tender without lymphadenopathy, masses or thyromegaly. CARDIOVASCULAR: Regular rate and rhythm RESPIRATORY: Respiratory rate normal, respiratory effort nonlabored, no respiratory distress SKIN: warm, Dry, intact with no suspicious lesions or rash, good texture and turgor. NEURO: awake, alert, and oriented to person, place and time. There were no obvious focal neurologic abnormalities. EXTREMITIES: No joint tenderness, effusion, or edema noted. Course Course Emergency Course: Portions of this record may have been created with voice recognition software Level of Care: Express Care Visit Vital Signs Vital signs: Vital Signs Temperature 97.8 F 11/25/24 12:06 Pulse Rate 94 11/25/24 12:06 Respiratory Rate 16 11/25/24 12:06 Blood Pressure 144/92 H 11/25/24 12:06 Pulse Oximetry 97 11/25/24 12:06 Oxygen Delivery Room Air 11/25/24 12:06 Temperature 97.8 F 11/25/24 12:06 Pulse Rate 94 11/25/24 12:06 Respiratory Rate 16 11/25/24 12:06 Blood Pressure 144/92 H 11/25/24 12:06 Pulse Oximetry 97 11/25/24 12:06 Oxygen Delivery Room Air 11/25/24 12:06 Reviewed MDM - Dental/Oral MDM Narrative Medical decision making narrative: No obvious dental abscess, however there is redness and swelling to the right upper gum near the 1st and 2nd molar. Dental caries are present. Will Go ahead and treat with Augmentin. Advised patient to follow-up with dentist. Discussed physical exam findings. Advised supportive measures and signs/symptoms to go to the ER. Pt is appropriate for outpt treatment and f/u. Differential Diagnosis Differential diagnosis: Likely gingival abscess, dental caries and dental abscess Critical Care Time Critical Care Time Critical Care Time: No Discharge Plan Discharge Clinical Impression: Dental infection Patient Disposition: Home Condition: Stable Instructions: Antibiotic Form, Dental Abscess (ED) Additional Instructions: Take the antibiotics as directed. You may alternate Tylenol and ibuprofen as needed for pain. You may use viscous lidocaine as needed for pain in your mouth. Use a Q-tip and apply directly to the affected area. [place] your teeth and floss at least 2 times a day. You may use mouthwash after each brushing as well. Follow-up with dentist next week. If you developed worsening swelling, fevers, difficulty swallowing or breathing, difficulty opening your jaw, swelling or pain under the tongue, or any other concerns please go to the ER immediately. Patient Language: Ukrainian Prescriptions: New amoxicillin-pot clavulanate 875-125 mg tablet 1 tablet PO Q12H 10 Days Qty: 20 0RF lidocaine HCl [Lidocaine Viscous] 2 % solution 1 applic mucous membrane TID PRN (Reason: pain) Qty: 1 0RF Follow-up/Referrals: PHYSICIAN,PRODUCTION SUPPORT DEVELOPER [Primary Care Provider] - Time of Disposition: 12:28
== END 2024-11-25 12:33 | disposition home or self-care (01) ==
DX: K04.7 Periapical abscess without sinus (principal)
CPT/HCPCS: 99213; G0463